=== PATIENT | male | born 1945 | race Caucasian/White ===

== ENCOUNTER 2016-12-06 09:28 | Emergency (ER) | payer MEDICARE ==
[~2016-12-06] VITALS: Ht 182.8 cm; Wt 72.6 kg
--- NOTE | ~2016-12-06 | EKG ---
[place], [place] ELECTROCARDIOGRAM REPORT NAME: RAYNE ARANDA UNIT #: [id number] ROOM: DOCTOR: BRISA YOON,ANNE BIRTHDATE: [birth year] DOS: 12/06/2016 TIME: 9:51 a.m. IMPRESSION: 1. Normal sinus rhythm. 2. 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 ANNE LEDEZMA MD CM:EKGRPT:ELECTROCARDIOGRAM REPORT [id number] ANNE LEDEZMA MD
[2016-12-06 10:30] LABS: BASO # 0.1 10*3/uL (0.0-0.1); BASO % 1.2 % (0.0-1.0); EOS # 0.3 10*3/uL (0.0-0.4); EOS % 3.9 % (1.0-4.0); HEMATOCRIT 43.4 % (42.0-52.0); HEMOGLOBIN 14.7 g/dl (14.0-18.0); LYMPH # 1.3 10*3/uL (1.3-4.4); MEAN CELL VOLUME 93.9 fl (80.0-94.0); MEAN CORPUSCULAR HGB 31.8 pg (27.0-31.0); MEAN CORPUSCULAR HGB CONC 33.9 g/dl (33.0-37.0); MEAN PLATELET VOLUME 9.3 fl (9.6-12.3); MONO # 0.9 10*3/uL (0.1-1.0); MONO % 13.8 % (3.0-9.0); NEUT % 60.8 % (47.0-73.0); PLATELET COUNT AUTOMATED 226 10*3/uL (130-400); RED BLOOD COUNT 4.62 10*6/uL (4.50-5.90); WHITE BLOOD COUNT 6.6 10*3/uL (4.8-10.8)
[2016-12-06 10:38] LABS: ACT PARTIAL THROMBO TIME 26.7 SECONDS (20.8-31.5)
[2016-12-06 10:47] LABS: BUN 20 mg/dl (7-24); CHLORIDE 106 mmol/L (98-107); MAGNESIUM 2.1 mg/dL (1.5-2.1); POTASSIUM 4.7 mmol/L (3.5-5.1); SODIUM 138 mmol/L (136-145)
[2016-12-06 10:54] LABS: TROPONIN I < 0.015 ng/ml (<0.045)
[2016-12-06] MEDS ORDERED: PACERONE200 MG PO (11:58)
[2016-12-06] MEDS ORDERED: LOPRESSOR25 MG PO (11:58)
== END 2016-12-06 12:06 | disposition home or self-care (01) ==
LOC: ED 09:28
PROVIDERS: Emergency Medicine
DX: T82.897A Other specified complication of cardiac prosthetic devices, implants and grafts, initial encounter (principal); I47.1 Supraventricular tachycardia; Z88.1 Allergy status to other antibiotic agents

== ENCOUNTER 2020-10-21 15:34 | Emergency (ER) | payer MEDICARE ==
[~2020-10-21] VITALS: Ht 182.8 cm; Wt 72.6 kg
[~2020-10-21 15:34] MED LIST: LOPRESSOR25 MG PO; PACERONE200 MG PO
[2020-10-21] MEDS ORDERED: VIBRAMYCIN100 MG PO (17:23)
== END 2020-10-21 17:50 | disposition home or self-care (01) ==
LOC: ED 15:34
DX: L98.9 Disorder of the skin and subcutaneous tissue, unspecified (principal); Z88.1 Allergy status to other antibiotic agents; Z79.899 Other long term (current) drug therapy